=== PATIENT | female | born 1955 | race Caucasian/White ===

== ENCOUNTER 2018-10-09 21:51 | Inpatient (IN) | payer MEDICAID, OTHER ==
[~2018-10-09] VITALS: Ht 162.6 cm; Wt 120.2 kg
[2018-10-10] MEDS ORDERED: ONDANSETRON HCL 4MG/2ML INJ IV STA (00:15)
[2018-10-10] MEDS ORDERED: SODIUM CHLORIDE 0.9% 1,000 ML IV ONE (00:15)
[2018-10-10] MEDS ORDERED: FAMOTIDINE 20MG/2ML VIAL IV STA (00:15)
[2018-10-10] MEDS ORDERED: MORPHINE SULFATE 4 MG/ML CPJ (NOT FOR IM USE) IV STA (00:15)
[2018-10-10 00:53] LABS: BASOPHILS % 0.5 % (0.0-2.0); EOSINOPHILS % 0.4 % (0.0-5.0); HEMATOCRIT. 42.9 % (36.0-48.0); HEMOGLOBIN. 14.1 g/dL (12.0-16.0); LYMPHOCYTES % 10.1 % (20.0-50.0); MEAN CORPUSCULAR HEMOGLOBIN 26.6 pg (28.0-32.0); MEAN CORPUSCULAR VOLUME 80.8 fL (81.0-99.0); MONOCYTES % 3.7 % (2.0-8.0); NEUTROPHILS % 85.3 % (40.0-76.0); PLATELET 261 x1000/uL (130-400); RED BLOOD CELL COUNT 5.31 mill/uL (4.2-5.4); RED CELL DISTRIBUTION WIDTH 16.1 % (11.6-14.6)
[2018-10-10 01:00] LABS: CHLORIDE 106 mEq/L (98-107)
[2018-10-10] MEDS ORDERED: KETOROLAC 30MG/ML VIAL IV ONE (01:00)
[2018-10-10] MEDS ORDERED: CEFTRIAXONE 1 G PREMIX 50 ML IV SCH (01:30)
[2018-10-10] MEDS ORDERED: IOHEXOL-300 100 ML BOTTLE ONE (03:54)
[2018-10-10 04:30] VITALS: BP_SYST 131; BP_SYST 132; BP_DIAS 66; BP_DIAS 83
[2018-10-10] MEDS: BLOOD SUGAR DIAGNOSTIC STRIP TEST SCH ×3 (06:44→17:56)
[2018-10-10] MEDS ORDERED: ONDANSETRON HCL 4MG/2ML INJ IV PRN (06:45)
[2018-10-10] MEDS ORDERED: DEXT 5%/0.45% NACL KCL 10MEQ/L 1,000 ML IV SCH (06:45)
[2018-10-10] MEDS ORDERED: DEXTROSE 50% WATER 50ML SYRINGE IV PRN (06:45)
[2018-10-10] MEDS ORDERED: KETOROLAC 30MG/ML VIAL IV PRN (06:45)
[2018-10-10] MEDS: INSULIN LISPRO 100 UNITS/ML SUBCUT SCH ×3 (06:54→17:56)
[2018-10-10 08:00] VITALS: BP 115/57
[2018-10-10] MEDS ORDERED: LEVOFLOXACIN 500MG PREMIX 100 ML IV SCH (08:00)
[2018-10-10] MEDS ORDERED: DEXT 5%/0.45% NACL KCL 20MEQ/L 1,000 ML IV SCH (08:00)
[2018-10-10 12:00] VITALS: BP 96/53
[2018-10-10] MEDS ORDERED: DEXT 5%/0.45% NACL 1000ML 1,000 ML IV SCH (13:45)
[2018-10-10 16:00] VITALS: BP 123/64
[2018-10-10 18:15] VITALS: BP 123/64
== END 2018-10-10 19:20 | disposition home or self-care (01) | DRG 720 ==
LOC: ER 21:51 → EDBEDREQ 10-10 02:14 → EDBEDREQTM 10-10 02:14 → ENRESERV 10-10 03:02 → 8WST 10-10 04:32
PROVIDERS: ADMIT Internal Medicine; ATTEND Internal Medicine
DX: A41.9 Sepsis, unspecified organism (principal); K80.00 Calculus of gallbladder with acute cholecystitis without obstruction; E66.01 Morbid (severe) obesity due to excess calories; E87.5 Hyperkalemia; E11.9 Type 2 diabetes mellitus without complications; R74.0 Nonspecific elevation of levels of transaminase and lactic acid dehydrogenase [LDH]; Z68.42 Body mass index [BMI] 45.0-49.9, adult
CPT/HCPCS: 36415; 71045; 74177; 76705; 82962; 83605; 93970; 96365; 96375; 99285; J0696; J1815; J1885; J1956; J2405; J3490; J7030; J7050; Q9967